=== PATIENT | male | born 1960 | race African-American/Black ===

== ENCOUNTER 2024-01-15 11:04 | Emergency (ER) | payer OTHER ==
[~2024-01-15] VITALS: Ht 190.5 cm; Wt 100.0 kg
[~2024-01-15 11:04] MED LIST: ACET-3207 PO; ASPI-2 PO; ATOR80TA PO; BACL10TA PO; CARV25 PO; DIGO125T71 PO; VALS80TA2 PO
[2024-01-15 11:19] VITALS: BP 147/84; PULSE 55; RESP 16; TEMP 98
[2024-01-15] MEDS ORDERED: PROP10DR4 OU (13:15)
[2024-01-15] MEDS ORDERED: FURO20TA4 PO (13:15)
[2024-01-15] MEDS ORDERED: ATOG30TA PO (13:15)
[2024-01-15] MEDS ORDERED: OMEP20CA12 PO (13:15)
[2024-01-15] MEDS ORDERED: RIVA10TA PO (13:15)
[2024-01-15] MEDS ORDERED: RIME75TA PO (13:15)
[2024-01-15] MEDS ORDERED: METO-391 PO (13:15)
[2024-01-15] MEDS ORDERED: GABA-1181 PO (13:15)
[2024-01-15] MEDS ORDERED: LEVE750T10 PO (13:15)
[2024-01-15] MEDS ORDERED: LISI10TA24 PO (13:15)
[2024-01-15] MEDS ORDERED: DOCU100C33 PO (13:15)
[2024-01-15] MEDS ORDERED: POTA20LI57 PO (13:15)
[2024-01-15] MEDS: HYDROCODONE/ACETAMINOPHEN 5-325 MG TABLET PO ONE (13:27)
== END 2024-01-15 14:05 | disposition home or self-care (01) ==
LOC: EMS 11:04
DX: S80.01XA Contusion of right knee, initial encounter (principal); I11.0 Hypertensive heart disease with heart failure; I50.9 Heart failure, unspecified; F17.210 Nicotine dependence, cigarettes, uncomplicated; W22.09XA Striking against other stationary object, initial encounter; Y93.89 Activity, other specified; Y92.89 Other specified places as the place of occurrence of the external cause; Y99.8 Other external cause status
CPT/HCPCS: 99283